=== PATIENT | female | born 1955 ===

== ENCOUNTER 2022-08-29 21:10 | Emergency (ER) | payer SELFPAY ==
[2022-08-29 22:15] LABS: BILIRUBIN,URINE NEGATIVE (NEGATIVE); CLARITY,URINE CLEAR; COLOR,URINE YELLOW; GLUCOSE, URINE (UA) NEGATIVE (NEGATIVE); KETONES,URINE NEGATIVE (NEGATIVE); LEUKOCYTE ESTERASE ,URINE TRACE (NEGATIVE); NITRITE,URINE NEGATIVE (NEGATIVE); PH,URINE 5.5 (5-9); PROTEIN,URINE NEGATIVE (NEGATIVE)
[2022-08-29 22:40] LABS: BACTERIA,URINE TRACE /HPF; RBC,URINE 0-2 /HPF
--- NOTE | 2022-08-30 00:06 | ED GU-Female ---
General Chief Complaint: - Reproductive Stated Complaint: VAG BURNING/PAIN Nursing Triage Note: TO ED VIA POV AND AMBULATORY TO ROOM 7. USE OF CONTAINER PACKER OPERATOR REQUIRED. PER PT SHE HAS CONTINUED BURNING WITH URINATION AFTER COMPLETING ANTIBIOTICS FOR UTI. PT STATES SHE WAS SEEN AT [facility] AND GIVEN ANTIBIOTICS AND COMPLETED COURSE, BUT AFTER SEVERAL ATTEMPTS WITH CONTAINER PACKER OPERATOR TO ASK WHEN ANTIBIOTICS STARTED AND COMPLETED IT COULD NOT BE DETERMINED. Source: patient, staff interpreter (#[id number] Elizabeth) Exam Limitations: language barrier (Norwegian speaking only) (LORENZA MORA) History of Present Illness Date Seen by Provider: Aug 29, 2022 Time Seen by Provider: 22:59 Initial Comments Mrs. Aries Diamond is a 67 yo F with no PMH who presents to the ED with 15days of burning pain which began in her left flank and now is felt in the left inguinal and vaginal area. She was given a 10 day supply of abx at [facility] which she has completed. She states the burning and pain has not improved and has gotten worse prompting her visit today. She has been drinking lots of water, which has not helped, she has not taken pain medication such as Tylenol, she states standing makes the pain worse and laying down makes it better. She denies any abnormal vaginal discharge. She does endorse chills and feeling hot and increasing loose stools. A video staff interpreter was used for this visit (Elizabeth #[id number]) - the service was interrupted due to unknown technical difficulty, unable to reconnect limiting further interview and limiting physical exam. Timing/Duration: getting worse, changing over time Severity/Quality: moderate, burning Location: LLQ, vaginal Radiation: back Modifying Factors: Improves With Lying down Associated Symptoms: No dysuria; fever/chills (LORENZA MORA) Allergies and Home Medications Allergies Coded Allergies: Penicillins (Verified Allergy, Unknown, 08/29/22) Patient Home Medication List Home Medication List Reviewed: Yes (CITLALY KISER MD) Review of Systems Review of Systems Constitutional: chills, fever Gastrointestinal: LLQ, abdominal pain (LLQ), diarrhea Genitourinary: burning; denies dysuria; flank pain Musculoskeletal: back pain (LORENZA MORA) Past Cujzxcm-[id number]-[id number] Hx Patient Social History Tobacco Use?: No Substance use?: No Alcohol Use?: No (LORENZA MORA) Immunizations Up To Date Influenza Vaccine Up-to-Date: Yes; Up-to-Date COVID19 Vaccine Visitor Use Assistant: STATES SHE HAS HAD 3 VACCINES (LORENZA MORA) Physical Exam Vital Signs Vital Signs - First Documented 08/29/22 21:51 Temp 36.6 Pulse 91 Resp 16 B/P (MAP) 149/109 (122) Pulse Ox 97 O2 Delivery Room Air (CITLALY KISER MD) Vital Signs Capillary Refill : Less Than 3 Seconds (LORENZA MORA) Height, Weight, BMI Height: '" Weight: lbs. oz. kg; BMI Method: General Appearance: WD/WN, no apparent distress HEENT: PERRL/EOMI, pharynx normal Neck: non-tender, full range of motion, supple Cardiovascular: regular rate, rhythm, no murmur Respiratory: chest non-tender, lungs clear, normal breath sounds, no respiratory distress, no accessory muscle use Gastrointestinal: normal bowel sounds, soft, no organomegaly, tenderness (LLQ) Back: no CVA tenderness, vertebral tenderness (lumbar region) Extremities: normal range of motion, no pedal edema, no calf tenderness, normal capillary refill Neurologic/Psychiatric: alert Skin: normal color, warm/dry; No rash Lymphatic: no adenopathy (LORENZA MORA) Progress/Results/Core Measures Suspected Sepsis SIRS Temperature: Pulse: 91 Respiratory Rate: 16 Blood Pressure 149 /109 Mean: 122 (LORENZA MORA) Results/Orders Lab Results Laboratory Tests Test 08/30/22 00:25 Range/Units White Blood Count 10.3 4.3-11.0 10^3/uL Red Blood Count 5.03 3.80-5.11 10^6/uL Hemoglobin 14.6 11.5-16.0 g/dL Hematocrit 45 35-52 % Mean Corpuscular Volume 89 80-99 fL Mean Corpuscular Hemoglobin 29 25-34 pg Mean Corpuscular Hemoglobin Concent 33 32-36 g/dL Red Cell Distribution Width 12.2 10.0-14.5 % Platelet Count 332 130-400 10^3/uL Mean Platelet Volume 9.7 9.0-12.2 fL Immature Granulocyte % (Auto) 0 % Neutrophils (%) (Auto) 47 42-75 % Lymphocytes (%) (Auto) 44 12-44 % Monocytes (%) (Auto) 7 0-12 % Eosinophils (%) (Auto) 1 0-10 % Basophils (%) (Auto) 0 0-10 % Neutrophils # (Auto) 4.9 1.8-7.8 10^3/uL Lymphocytes # (Auto) 4.5 H 1.0-4.0 10^3/uL Monocytes # (Auto) 0.7 0.0-1.0 10^3/uL Eosinophils # (Auto) 0.1 0.0-0.3 10^3/uL Basophils # (Auto) 0.0 0.0-0.1 10^3/uL Immature Granulocyte # (Auto) 0.0 0.0-0.1 10^3/uL (CITLALY KISER MD) My Orders Orders - CITLALY KISER MD Ct Abd/Pelvis Wo(Kidney Stone) (08/30/22 01:02) (CITLALY KISER MD) Vital Signs/I&O (CITLALY KISER MD) Vital Signs/I&O Capillary Refill : Less Than 3 Seconds (LORENZA MORA) Blood Pressure Mean: 122 Progress Note : Progress Note Patient was interviewed and examined by me along with MS 4. The video staff interpreter service was not working. The phone service was used as an alternative. This interview was extremely difficult. The quality of interpretation by the staff interpreter was poor and the patient was a very difficult historian. She would not answer questions directly or clearly. Even when asked the same question multiple times in a simple fashion, she did not provide the information requested. Ultimately her work-up was relatively unremarkable. Labs were reviewed in their entirety including CBC, CMP, CRP, lipase, and urinalysis. Patient had also described a burning sensation on her skin radiating down toward the labia and described rash or skin discoloration. She would not allow myself or the male medical student examine her skin in the pelvic or groin region, even with a interactive graphic designer. She did allow female nursing staff to examine the area, and they reported no abnormalities. There was no explanation for her ongoing pain and a CT scan was obtained. CT revealed no acute abnormalities. Ultimately no source of her pain was identified. She was discharged in stable condition with no active pain at the time of discharge. (CITLALY KISER MD) Diagnostic Imaging Diagonstic Imaging: CT Plain Films/CT/US/NM/MRI: abdomen, pelvis Comments CT abdomen and pelvis viewed by me and report reviewed. See report below: NAME: LORENA ORTEZ REC#: [id number] PT STATUS: DEP ER : [id number] PHYSICIAN: CITLALY KISER MD ADMIT DATE: 08/29/22/ER Draft Date of Exam:08/30/22 CT ABD/PELVIS WO(KIDNEY STONE) PROCEDURE: CT urinary tract, rule out kidney stone. TECHNIQUE: Multiple contiguous axial images were obtained through the abdomen and pelvis without the use of intravenous contrast. Auto Exposure Controls were utilized during the CT exam to meet ALARA standards for radiation dose reduction. INDICATION: Vaginal burning and pain with urination. No prior studies are available for comparison. The lung bases are clear. The study is limited by motion artifact. No discrete liver mass is detected. Gallbladder is unremarkable. No biliary ductal dilatation. Pancreas and spleen are unremarkable. No adrenal mass is seen. Kidneys are without calculi or hydronephrosis. Aorta is nonaneurysmal. Bowel loops are normal caliber. No obstruction is detected. There is no ascites. Bladder is decompressed. Uterus is unremarkable. No inflammatory changes are identified. Bony structures appear nonacute. IMPRESSION: Limited by motion artifact. Study is otherwise unremarkable. No acute feature is detected. Dictated on workstation # [id number] Dict: 08/30/22 0628 Trans: 08/30/22 0638 [facility] [id number] Interpreted by: LACEY POSEY MD (CITLALY KISER MD) Departure Impression Primary Impression: Left sided abdominal pain of unknown cause Disposition: 01 HOME, SELF-CARE Condition: Stable Departure-Patient Inst. Decision time for Depature: 02:08 (CITLALY KISER MD) Referrals: [facility] (PCP/Family) Primary Care Physician Patient Instructions: Severe Abdominal Pain Add. Discharge Instructions: The exact cause of your abdominal pain is unknown. The CT scan and lab work in the ER did not reveal a specific cause for your pain. You may treat your pain with Tylenol (acetaminophen) up to 1000 mg every 6 hours as needed. You may also take ibuprofen up to 600 mg every 6 hours as needed for more pain relief. Follow-up with your primary care provider soon as possible for further evaluation. Drink plenty of clear liquids to stay well-hydrated. Return to the emergency room if you have worsening symptoms despite following these instructions. All discharge instructions reviewed with patient and/or family. Voiced understanding. Medical Student Attestation and Attending Note: I have personally interviewed and examined this patient along with Lorenza Mora, MS4. I have reviewed student documentation including history, physical, and assessments. I agree with the documentation except where otherwise noted. Exam: General: Alert, oriented, no acute distress, well developed HEENT: Normocephalic and atraumatic Heart: Regular rate and rhythm without murmur Lungs: Clear to auscultation bilaterally with normal effort Abdomen: Soft, nontender, nondistended, normal bowel sounds Neuropsych: Alert, oriented, no focal deficits Skin: Warm and dry without rashes (CITLALY KISER MD) Copy Copies To 1: [facility]/LORENZA MALDONADO Aug 30, 2022 00:06 CITLALY KISER MD Aug 30, 2022 02:10
[2022-08-30 00:18] LABS: ALBUMIN 4.7 GM/DL (3.2-4.5); CHLORIDE 109 MMOL/L (98-107); POTASSIUM 4.4 MMOL/L (3.6-5.0); SODIUM 140 MMOL/L (135-145)
[2022-08-30 00:20] LABS: CALCIUM 9.4 MG/DL (8.5-10.1)
[2022-08-30 00:21] LABS: GLUCOSE 105 MG/DL (70-105); TOTAL PROTEIN 8.6 GM/DL (6.4-8.2)
[2022-08-30 00:22] LABS: CARBON DIOXIDE 20 MMOL/L (21-32)
[2022-08-30 00:23] LABS: BILIRUBIN,TOTAL 0.4 MG/DL (0.1-1.0)
[2022-08-30 00:24] LABS: ALKALINE PHOSPHATASE 99 U/L (40-136); CREATININE SERUM 0.78 MG/DL (0.60-1.30); GFR ESTIMATED 84
[2022-08-30 00:26] LABS: BUN/CREATININE RATIO 21
[2022-08-30 00:27] LABS: ALANINE AMINOTRANSFERASE 42 U/L (0-55)
[2022-08-30 00:28] LABS: LIPASE 59 U/L (8-78)
[2022-08-30 00:30] LABS: BASOPHILS % (AUTO) 0 % (0-10); EOSINOPHILS # (AUTO) 0.1 10^3/uL (0.0-0.3); EOSINOPHILS % (AUTO) 1 % (0-10); HEMATOCRIT 45 % (35-52); HEMOGLOBIN 14.6 g/dL (11.5-16.0); LYMPHOCYTES # (AUTO) 4.5 10^3/uL (1.0-4.0); LYMPHOCYTES % (AUTO) 44 % (12-44); MEAN CORPUSCULAR HEMOGLOBIN 29 pg (25-34); MEAN CORPUSCULAR HGB CONC 33 g/dL (32-36); MEAN CORPUSCULAR VOLUME 89 fL (80-99); MEAN PLATELET VOLUME 9.7 fL (9.0-12.2); MONOCYTES # (AUTO) 0.7 10^3/uL (0.0-1.0); MONOCYTES % (AUTO) 7 % (0-12); NEUTROPHILS # (AUTO) 4.9 10^3/uL (1.8-7.8); NEUTROPHILS % (AUTO) 47 % (42-75); PLATELET COUNT 332 10^3/uL (130-400); WHITE BLOOD COUNT 10.3 10^3/uL (4.3-11.0)
[2022-08-30 02:16] VITALS: BP 135/89
--- NOTE | 2022-08-30 06:39 | Diagnostic Imaging Report ---
PROCEDURE: CT urinary tract, rule out kidney stone. TECHNIQUE: Multiple contiguous axial images were obtained through the abdomen and pelvis without the use of intravenous contrast. Auto Exposure Controls were utilized during the CT exam to meet ALARA standards for radiation dose reduction. INDICATION: Vaginal burning and pain with urination. No prior studies are available for comparison. The lung bases are clear. The study is limited by motion artifact. No discrete liver mass is detected. Gallbladder is unremarkable. No biliary ductal dilatation. Pancreas and spleen are unremarkable. No adrenal mass is seen. Kidneys are without calculi or hydronephrosis. Aorta is nonaneurysmal. Bowel loops are normal caliber. No obstruction is detected. There is no ascites. Bladder is decompressed. Uterus is unremarkable. No inflammatory changes are identified. Bony structures appear nonacute. IMPRESSION: Limited by motion artifact. Study is otherwise unremarkable. No acute feature is detected. Dictated by: Dictated on workstation # [id number]
== END 2022-08-30 02:16 | disposition home or self-care (01) ==
LOC: ER 21:16
DX: R10.32 Left lower quadrant pain (principal)
CPT/HCPCS: 36415; 74176; 80053; 81000; 83690; 85025; 86141; 87088